=== PATIENT | female | born 1990 | race Caucasian/White ===

== ENCOUNTER 2016-09-21 22:17 | Emergency (ER) | payer BC, OTHER ==
[2016-09-21] MEDS ORDERED: NORMAL SALINE 10 ML SYRINGE FLUSH IVP PRN (22:22)
[2016-09-21] MEDS ORDERED: diphenhydrAMINE 50 MG/1 ML VIAL IVP ONE (22:22)
[2016-09-21] MEDS ORDERED: Famotidine Inj 20 MG in Normal Saline Flush 10 ML IVP ONE (22:22)
[2016-09-21] MEDS ORDERED: Sodium Chloride 0.9% 1,000 ML PRIMARY IV ONE (22:22)
[2016-09-21] MEDS ORDERED: methylPREDNISolone 125 MG/2 ML VIAL IVP ONE (22:22)
[2016-09-21] MEDS ORDERED: ONDANSETRON 4 MG/2 ML VIAL IVP ONE (22:23)
[2016-09-21 22:38] LABS: BASOPHILS # (AUTO) 0.03 10*3/UL; BASOPHILS % (AUTO) 0.4 % (0-1); EOSINOPHILS % (AUTO) 1.3 % (0-8); HEMATOCRIT 40.4 % (37.0-47.0); HEMOGLOBIN 13.7 g/dL (12.0-16.0); IMM GRAN % (AUTO) 0.2 % (0-5); IMM GRAN# (AUTO) 0.02 10*3/UL; LYMPHOCYTES # (AUTO) 3.69 10*3/uL; LYMPHOCYTES % (AUTO) 45.3 % (10-50); MEAN CORPUSCULAR HGB CONC 33.9 g/dL (33-37); MEAN PLATELET VOLUME 9.9 FL (7.4-12.2); MONOCYTES # (AUTO) 0.66 10*3/UL (0.3-0.8); MONOCYTES % (AUTO) 8.1 % (5-15); NEUTROPHILS # (AUTO) 3.64 10*3/UL; NEUTROPHILS % (AUTO) 44.7 % (50-80); PLATELET MORPHOLOGY COMMENT NORMAL MORPHOLOGY (NORM); RDW COEFFICIENT OF VARIATION 12.4 % (11.5-14.5); RED BLOOD COUNT 4.73 10^6/uL (4.20-5.40); WHITE BLOOD COUNT 8.15 10^3/uL (4.8-10.8)
[2016-09-21 22:47] LABS: ASPARTATE AMINO TRANSFERASE 20 IU/L (8-39); BILIRUBIN,TOTAL 0.3 mg/dL (0.3-1.2); BLOOD UREA NITROGEN 11 mg/dL (7-22); BUN/CREATININE RATIO 15.71 (6-20); CALCIUM 9.8 mg/dL (8.7-10.7); CHLORIDE 104 meq/L (98-112); CREATININE 0.7 mg/dL (0.50-1.20); EST GLOMERULAR FILTRATION > 60 (>60 ml/min/1.73m(2)); GLUCOSE 105 mg/dL (78-110); SODIUM 139 meq/L (135-145); TOTAL PROTEIN 7.8 g/dL (6.1-8.0)
[2016-09-21 22:53] LABS: POTASSIUM 3.7 meq/L (3.8-5.2)
[2016-09-21] MEDS ORDERED: Prochlorperazine Edisylate Inj 10mg/2ml vial IVP ONE (22:55)
--- NOTE | 2016-09-21 23:09 | PDOC ---
Allergy Symptoms HPI - General Chief Complaint: Allergic Reaction/Anaphylaxis Stated Complaint: ALLERGIC REACTION Date Seen by Provider: 09/21/16 Time Seen by Provider: 22:20 Source: POSITIVE: Patient Exam Limitations: POSITIVE: No limitations Nurse's Notes Reviewed & Considered: Yes - History of Present Illness Initial Comments: The patient is a 25-year-old female who presents to the emergency department with an allergic reaction. She states that approximately 15-20 minutes ago she drank a couple of drinks of a new tequila that she had never drank before. She shortly afterward developed itching that started in her right forearm and then extended to both arms. She also feels like her tongue is swollen and she has some tightness in the back of her throat. Her face feels hot and she has some swelling around her eyes. She also is nauseated and has vomited since arrival here in the emergency room. She has not had any similar reactions in the past. - Patient Home Medications Home Medications: Home Medications Famotidine [Pepcid Ac] 1 tab PO DAILY PRN tab 05/16/14 Escitalopram Oxalate [Lexapro] 1 tab PO QD #30 tab 06/03/16 Norgestimate-Ethinyl Estradiol [Sprintec 28 Day Tablet] 1 tab PO QD #28 tab 06/09 Doxycycline Hyclate 1 cap PO BID #20 cap 09/12/16 predniSONE Tab [Deltasone Tab] 40 mg PO DAILY #10 tab 09/21/16 - Patient Allergies Allergies/Adverse Reactions: Allergies Allergy/AdvReac Type Severity Reaction Status Date / Time tramadol AdvReac Intermediate ITCHING Verified 09/21/16 22:43 Past Medical History - heen HEENT History: Denies History Cardiovascular History: Denies History Respiratory History: Denies History Gastrointestinal History: Gallbladder Disease Additional Gastrointestinal History: ABDOMINAL PAIN/ NAUSEA Genitourinary History: Denies History Endocrine History: Denies History Musculoskeletal History: Other (please comment) Prosthesis or Implant: No Additional Musculoskeletal History: wrist surgery Neurological History: Motion Sickness Blood Disorders: Denies History Psychiatric History: Denies History History of Sexually Transmitted Diseases: No Cancer History: Denies History In Past Year Been Physically Harmed or Verbally Threatened: No History of MDRO: No History of Other Communicable Diseases: No Tobacco Use: Never Smoker Alcohol Use: Rarely Substance Use Type: None Previous Surgical History: Yes Type / Date of Surgery: APPY/ WRIST SCOPE ON LEFT/ WISDOM TEETH/ [place] Anesthesia Reactions: No Malignant Hyperthermia: No Significant Family History: No pertinent family hx Past Medical History Reviewed: Reviewed - No Changes ROS - Limitations ROS Limitations: No Limitations Constitution: DENIES: Chills, Fever Cardiovascular: REPORTS: Denies Cardiac Symptoms Respiratory: DENIES: Hurts To Breathe, Shortness Of Breath, Wheezing Neurological: REPORTS: Denies Neuro Symptoms Gastrointestinal: REPORTS: Nausea, Vomitting. DENIES: Abdominal Pain Musculoskeletal: REPORTS: Denies MS Symptoms Eyes: REPORTS: Other (Swelling around both eyes) ENT: REPORTS: Tongue Swelling, Throat Swelling Skin: REPORTS: Rash (Primarily on her arms) Allergy Symptoms Physical Exam - General Appearance General Appearance: POSITIVE: Alert, Cooperative, No Acute Distress - HEENT Head / Face: POSITIVE: Atraumatic, Other Eyes: POSITIVE: Other (She does have periorbital swelling bilaterally) Ears: POSITIVE: Ears Normal Inspection Nose: POSITIVE: Inspection Normal Oropharynx: POSITIVE: Other (She does have some mild swelling of her tongue, no obvious swelling in the posterior oropharynx) - Neck Neck: POSITIVE: Normal Inspection. 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 Normal As Tested, Motor Normal, Sensation Normal Allergy Symptoms Progress - Results Reviewed by Me Lab Results Reviewed: Yes Lab Results:: Laboratory Results 09/21/16 Range/Units 22:27 WBC 8.15 (4.8-10.8) 10^3/uL RBC 4.73 (4.20-5.40) 10^6/uL Hgb 13.7 (12.0-16.0) g/dL Hct 40.4 (37.0-47.0) % MCV 85.4 (81-99) FL MCH 29.0 (27-31) PG MCHC 33.9 (33-37) g/dL RDW Std Deviation 38.2 L (39-50) fL RDW Coeff of Luisa 12.4 (11.5-14.5) % Plt Count 412 H (140-350) 10*3/uL MPV 9.9 (7.4-12.2) FL Immature Gran % (Auto) 0.2 (0-5) % Neut % (Auto) 44.7 L (50-80) % Lymph % (Auto) 45.3 (10-50) % Stone % (Auto) 8.1 (5-15) % Eos % (Auto) 1.3 (0-8) % Baso % (Auto) 0.4 (0-1) % Immature Gran # (Auto) 0.02 10*3/UL Neut # (Auto) 3.64 10*3/UL Lymph # (Auto) 3.69 10*3/uL Stone # (Auto) 0.66 (0.3-0.8) 10*3/UL Eos # (Auto) 0.11 10*3/UL Baso # (Auto) 0.03 10*3/UL WBC Morphology Comment Normal morphology (NORM) Plt Morphology Comment Normal morphology (NORM) RBC Morph Comment Normal morphology (NORM) Sodium 139 (135-145) meq/L Potassium 3.7 L (3.8-5.2) meq/L Chloride 104 (98-112) meq/L Carbon Dioxide 22 L (23-33) meq/L Anion Gap 13 (5-20) BUN 11 (7-22) mg/dL Creatinine 0.7 (0.50-1.20) mg/dL Estimated GFR > 60 (>60 ml/min/1.73m(2)) BUN/Creatinine Ratio 15.71 (6-20) Glucose 105 (78-110) mg/dL Calculated Osmolality 286.0 (267-292) mOsm/kg Calcium 9.8 (8.7-10.7) mg/dL Total Bilirubin 0.3 (0.3-1.2) mg/dL AST 20 (8-39) IU/L ALT 25 (9-52) IU/L Alkaline Phosphatase 64 (38-126) IU/L Total Protein 7.8 (6.1-8.0) g/dL Albumin 4.5 (3.5-4.8) g/dL Globulin 3.3 (2.50-4.10) g/dL Albumin/Globulin Ratio 1.30 (1.3-2.0) mg/g Serum Alcohol < 10 (0-10) mg/dL - Patient's Progress MDM / ED Course: Shortly after arrival an IV was established and she received Benadryl 25 mg, Pepcid 20 mg and Solu-Medrol 125 mg IV. She also is actively vomiting on arrival and received Zofran 4 mg IV. Her nausea did not improve significantly despite improvement in the itching and swelling in her tongue. She continued to have dry heaves and received Compazine 2.5 mg IV. Her dry heaves and nausea improved significantly. The visible rash on her arm basically resolved. The swelling noted on her tongue also improved. She was considered stable for discharge home. She will be continued on prednisone 40 mg daily for 5 days and advised to continue Benadryl as needed for swelling or itching. She was also given 2 doses of Zofran 8 mg as needed for nausea. She was advised return to the emergency room if she develops increased swelling or difficulty breathing, any worsening or change in symptoms. Follow-up with primary care if no improvement in 2-3 days. - Consult Counseled: POSITIVE: Patient, Family, RE: DX, RE: Need for F/U Patient Care Time - Estimated PCT Patient Care Time (In Minutes): 25 Vital Signs - Recent Vital Signs Vital Signs: Vital Signs (Last 8 hours) Temp Pulse Resp BP Pulse Ox 09/21/16 22:20 98.8 F 103 H 20 147/102 99 - VS Reviewed Vital Signs Reviewed: Yes Discharge Clinical Impression: Allergic reaction Condition: Good Prescriptions / Orders: predniSONE Tab [Deltasone Tab] 40 mg PO DAILY #10 tab Patient Instructions Given at Discharge: General Allergic Reaction (ED) Additional Instructions: Symptoms are consistent with an allergic reaction. It is unclear what exactly what you are allergic to however is likely some component in the new drink that you had consumed just prior to the reaction. You have been prescribed prednisone 40 mg daily for 5 days. In addition you can take Benadryl 25-50 mg every 4-6 hours as needed for itching or swelling. You have also been given Zofran 8 mg every 6 hours as needed for nausea/vomiting. Return to the emergency room if increased swelling or difficulty breathing, any worsening or change in symptoms. Follow-up with primary care if no improvement in 2-3 days. Follow Up With: SUHAIL OZUNA [Primary Care Provider] -
[2016-09-21 23:17] VITALS: RESP 20; TEMP 98.8
[2016-09-21] MEDS ORDERED: Ondansetron ODT Tab 8 MG TAB PO SCH (23:30)
== END 2016-09-21 23:40 | disposition home or self-care (01) ==
LOC: ER 22:17
DX: T78.1XXA Other adverse food reactions, not elsewhere classified, initial encounter (principal); R11.2 Nausea with vomiting, unspecified; R22.0 Localized swelling, mass and lump, head
CPT/HCPCS: 80053; 80320; 85025; 96374; 96375; 99283 ×2; J1200; J2930; Q0162; J0780; J2405; J7030